=== PATIENT | male | born 1985 | race Two or more races ===

== ENCOUNTER 2024-09-06 17:02 | Emergency (ER) | payer MEDICAID, OTHER ==
[~2024-09-06] VITALS: Ht 175.3 cm; Wt 92.4 kg
[2024-09-06 17:14] VITALS: BP 136/98; PULSE 107; RESP 20; TEMP 98.9; O2SAT 99
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
[2024-09-06] MEDS: CEPHALEXIN 250 MG CAP PO ONE (17:45)
[2024-09-06] MEDS: HYDROcodone-ACET 5/325MG TAB PO ONE (17:45)
[2024-09-06] MEDS ORDERED: CEPH500T PO (18:33)
== END 2024-09-06 19:47 | disposition home or self-care (01) ==
LOC: ER 17:02 → EDBD 17:02 → ER 19:46
DX: L03.115 Cellulitis of right lower limb (principal)